=== PATIENT | female | born 1935 | race Caucasian/White ===

== ENCOUNTER 2021-11-21 21:11 | Emergency (ER) | payer OTHER ==
[2021-11-21] MEDS ORDERED: ACETAMINOPHEN 1000 MG/100 ML BAG IVPB ONE (21:49)
[2021-11-21] MEDS ORDERED: ACETAMINOPHEN INJECTION 100 ML IVPB ONE (21:52)
[2021-11-21 21:56] VITALS: BP 176/96; PULSE 90; RESP 18; TEMP 98; BMI 16.9
[2021-11-21] MEDS ORDERED: LIDOCAINE HCL/EPINEPHRINE/PF 20 ML VIAL ONE (23:17)
== END 2021-11-21 23:50 | disposition home or self-care (01) ==
LOC: FER 21:11
PROC: 0HQ0XZZ Repair Scalp Skin, External Approach (ICD-10-PCS; principal; 2021-11-21)
PROC: 3E033GC Introduction of Other Therapeutic Substance into Peripheral Vein, Percutaneous Approach (ICD-10-PCS; 2021-11-21)
DX: S01.01XA Laceration without foreign body of scalp, initial encounter (principal); W01.0XXA Fall on same level from slipping, tripping and stumbling without subsequent striking against object, initial encounter
CPT/HCPCS: 70450-TC; 72125-TC; 99285-25

== ENCOUNTER 2021-11-23 10:35 | Emergency (ER) | payer OTHER ==
[2021-11-23 10:55] VITALS: RESP 18; BMI 16.9
[2021-11-23 12:08] LABS: HEMATOCRIT 41.4 % (32.4-45.2); HEMOGLOBIN 14.1 G/dL (10.7-15.3); MCH 30.6 pg (25.7-33.7); MCHC 34.1 g/dl (32.0-36.0); MEAN CELL VOLUME 89.7 fl (80-96); MEAN PLT VOLUME 7.9 fl (7.5-11.1); PLATELET COUNT 152.2 10^3/uL (134-434); RBC 4.62 10^6/uL (3.60-5.2); RDW 14.3 % (11.6-15.6); WHITE BLOOD COUNT 10.5 10^3/uL (4.0-10.8)
[2021-11-23 12:17] LABS: ALBUMIN 3.5 g/dl (3.4-5.0); BILIRUBIN,TOTAL 0.8 mg/dl (0.2-1); CALCIUM 9.3 mg/dl (8.5-10); CREATININE 0.7 mg/dl (0.55-1.3); TOT PROT 6.8 g/dl (6.4-8.2)
[2021-11-23 12:18] VITALS: BP 150/80; PULSE 78; TEMP 99.1
[2021-11-23 12:26] LABS: EPITHELIAL CELLS RARE /hpf
[2021-11-23 12:31] LABS: PLATELET ESTIMATE ADEQUATE
[2021-11-23] MEDS ORDERED: ACETAMINOPHEN 325 MG TABLET (FP) PO ONE (12:49)
[2021-11-23] MEDS ORDERED: ACETAMINOPHEN 325 MG TABLET (FP) ONE (12:50)
[2021-11-23] MEDS ORDERED: SULFAMETHOXAZOLE/TRIMETHOPRIM 800MG/160MG D.S. TABLET PO ONE (13:32)
[2021-11-23] MEDS ORDERED: SULFAMETHOXAZOLE/TRIMETHOPRIM 800MG/160MG D.S. TABLET ONE (13:42)
== END 2021-11-23 14:16 | disposition home or self-care (01) ==
LOC: FER 10:35
DX: N39.0 Urinary tract infection, site not specified (principal); M54.50 Low back pain, unspecified
CPT/HCPCS: 36415; 72100-TC-FY; 80053; 81003; 81015; 85027; 99284-25

== ENCOUNTER 2022-05-22 12:27 | Emergency (ER) | payer OTHER ==
[2022-05-22] MEDS ORDERED: SODIUM CHLORIDE 0.9% 1000 ML INFUS.BAG IV ONE (12:53)
[2022-05-22] MEDS ORDERED: ACETAMINOPHEN 1000 MG/100 ML BAG IVPB ONE (12:53)
[2022-05-22] MEDS ORDERED: ONDANSETRON 4 MG/2 ML VIAL IVPUSH ONE (12:53)
[2022-05-22 13:09] VITALS: RESP 18; BMI 16.9
[2022-05-22] MEDS ORDERED: ONDANSETRON 4 MG/2 ML VIAL ONE (13:23)
[2022-05-22] MEDS ORDERED: ACETAMINOPHEN INJECTION 100 ML IVPB ONE (13:23)
[2022-05-22 13:29] LABS: HEMATOCRIT 37.9 % (32.4-45.2); HEMOGLOBIN 12.7 G/dL (10.7-15.3); MCH 30.4 pg (25.7-33.7); MCHC 33.5 g/dl (32.0-36.0); MEAN CELL VOLUME 90.9 fl (80-96); MEAN PLT VOLUME 8.4 fl (7.5-11.1); RBC 4.17 10^6/uL (3.60-5.2); RDW 14.7 % (11.6-15.6); WHITE BLOOD COUNT 5.9 10^3/uL (4.0-10.8)
[2022-05-22 13:38] LABS: ALBUMIN 3.3 g/dl (3.4-5.0); BILIRUBIN,TOTAL 1.3 mg/dl (0.2-1); CREATININE 0.9 mg/dl (0.55-1.3); TOT PROT 6.4 g/dl (6.4-8.2)
[2022-05-22 14:01] LABS: EPITHELIAL CELLS FEW /hpf
[2022-05-22 16:16] VITALS: BP 152/66; PULSE 66; TEMP 99.2
== END 2022-05-22 16:40 | disposition home or self-care (01) ==
LOC: FER 12:27
PROC: 3E0333Z Introduction of Anti-inflammatory into Peripheral Vein, Percutaneous Approach (ICD-10-PCS; principal; 2022-05-22)
PROC: 3E033GC Introduction of Other Therapeutic Substance into Peripheral Vein, Percutaneous Approach (ICD-10-PCS; 2022-05-22)
DX: U07.1 COVID-19 (principal); R11.2 Nausea with vomiting, unspecified
CPT/HCPCS: 0241U-QW; 36415; 74177-TC; 80053; 81003; 81015; 85027; 87086; 99285-25; Q9967